=== PATIENT | female | born 1935 | race Caucasian/White ===

== ENCOUNTER 2019-11-28 16:06 | Emergency (ER) | payer MEDICARE ==
[~2019-11-28] VITALS: Ht 170.2 cm; Wt 45.0 kg
[~2019-11-28 16:06] MED LIST: CALC0.5C9 PO; CIPR500T87 PO; DOXY100T PO; HYDR200T72 PO; LEFL10TA PO; LEVO50TA PO; PRED2.5T PO; TRAM200T3 PO; VALS320T2 PO
--- NOTE | 2019-11-28 16:34 | NUR ---
PATIENT BROUGHT BACK FROM TRIAGE WITH CHIEF COMPLAINT OF NONHEALING WOUNDS ON LOWER LEGS AND DIARRHEA SINCE STARTING THE ABX. PATIENT HAS APPPOINTMENT WITH WOUND CARE THIS COMING SUNDAY 12/03. "WOUNDS ON LEGS, NOT HEALING" "WHEN SHE WAS DISCHARGED ON THE , SHE WAS DC'D WITH DOXYCYCLINE & CIPRO, THEY MADE HER SICK, SHE HAD DIARRHEA THAT JUST WENT RIGHT THROUGH HER. SHE HARDLY ATE"
--- NOTE | 2019-11-28 16:43 | NUR ---
PATIENT STATES SHE HASNT HAD LOOSE STOOL TODAY
[2019-11-28] MEDS ORDERED: SODIUM CHLORIDE 0.9% 1,000ML IVBOLUS ONE (17:00)
[2019-11-28] MEDS ORDERED: HYDROcodone/APAP 5/325 TABLET PO ONE (17:00)
[2019-11-28] MEDS ORDERED: SODIUM CHLORIDE FLUSH 10ML SYR IVF ONE (17:00)
--- NOTE | 2019-11-28 17:05 | NUR ---
[facility] AT BEDSIDE FOR EVALUATION
[2019-11-28] MEDS ORDERED: HYDROcodone/APAP 5/325 TABLET ONE (17:10)
[2019-11-28 17:18] LABS: MEAN CORPUSCULAR HEMOGLOBIN 28.9 pg (27.0-34.8); MEAN CORPUSCULAR HGB CONC 32.7 g/dL (32.4-35.8); MEAN CORPUSCULAR VOLUME 88.3 fL (80-100); MEAN PLATELET VOLUME 8.7 fL (7.4-10.4); PLATELET COUNT 344 x10^3/uL (130-400); RED CELL DISTRIBUTION WIDTH 15.8 % (9.6-15.2)
[2019-11-28 17:27] LABS: ALANINE AMINOTRANSFERASE 34 U/L (12-78); ALBUMIN 2.9 g/dL (3.4-5.0); ANION GAP 8 mmol/L (5-15); CALCIUM 9.2 mg/dL (8.5-10.1); CHLORIDE 106 mmol/L (98-107)
[2019-11-28 17:30] LABS: ALKALINE PHOSPHATASE 54 U/L (45-117); BILIRUBIN,TOTAL 0.3 mg/dL (0.2-1.0); CREATININE 1.59 mg/dL (0.55-1.02); TOTAL PROTEIN 6.1 g/dL (6.4-8.2)
[2019-11-28 17:53] LABS: BASOPHILS # (AUTO) 0.03 x10^3/uL (0-0.1); BASOPHILS % (AUTO) 0 % (0-1); EOSINOPHILS # (AUTO) 0.15 x10^3/uL (0-0.4); EOSINOPHILS % (AUTO) 2 % (1-7); LYMPHOCYTES # (AUTO) 2.36 x10^3/uL (1-3.4); LYMPHOCYTES % (AUTO) 31 % (22-44); MD SCAN; MONOCYTES # (AUTO) 0.73 x10^3/uL (0.2-0.8); MONOCYTES % (AUTO) 10 % (2-9); NEUTROPHILS % (AUTO) 57 % (42-75)
--- NOTE | 2019-11-28 18:03 | NUR ---
PT RESTING IN BED, CALL LIGHT IN REACH
--- NOTE | 2019-11-28 18:43 | NUR ---
[facility] AT BEDSIDE FOR UPDATE OF POC
--- NOTE | 2019-11-28 18:54 | NUR ---
REPORT RECEIVED FROM SOLANGE VELAZQUEZ. PT RESTING ON [place] WITH FAMILY AT BS. PT UPDATED ON POC. MONITORING IN PLACE, CALL LIGHT WITHIN REACH, ALL SAFETY MEASURES IN PLACE.
[2019-11-28 19:30] VITALS: BP 147/84
== END 2019-11-28 19:39 | disposition home or self-care (01) ==
LOC: ED 17:03
DX: N28.9 Disorder of kidney and ureter, unspecified (principal); R79.89 Other specified abnormal findings of blood chemistry; R19.7 Diarrhea, unspecified; E86.0 Dehydration; I10 Essential (primary) hypertension; Z88.0 Allergy status to penicillin; Z88.2 Allergy status to sulfonamides
CPT/HCPCS: 36415; 80053; 85025; 93005; 96360; 96361; 99284; J7030

== ENCOUNTER 2019-12-03 14:54 | Outpatient (CLI) | payer MEDICARE | END 2019-12-03 23:59 | disposition home or self-care (01) | LOC: WOUND 14:54 | PROVIDERS: ATTEND Family Medicine | DX: L97.112 Non-pressure chronic ulcer of right thigh with fat layer exposed (principal); S81.802A Unspecified open wound, left lower leg, initial encounter; I12.9 Hypertensive chronic kidney disease with stage 1 through stage 4 chronic kidney disease, or unspecified chronic kidney disease; N18.9 Chronic kidney disease, unspecified; M06.371 Rheumatoid nodule, right ankle and foot; M05.671 Rheumatoid arthritis of right ankle and foot with involvement of other organs and systems; M05.872 Other rheumatoid arthritis with rheumatoid factor of left ankle and foot; E03.9 Hypothyroidism, unspecified; Z87.891 Personal history of nicotine dependence; Z90.710 Acquired absence of both cervix and uterus; Z96.641 Presence of right artificial hip joint; X58.XXXA Exposure to other specified factors, initial encounter; Y93.89 Activity, other specified; Y92.89 Other specified places as the place of occurrence of the external cause; Y99.8 Other external cause status | CPT/HCPCS: 11042; 11045; G0463 ==

== ENCOUNTER 2019-12-10 14:01 | Outpatient (CLI) | payer MEDICARE | END 2019-12-10 23:59 | disposition home or self-care (01) | LOC: WOUND 14:01 | PROVIDERS: ATTEND Family Medicine | DX: S81.802D Unspecified open wound, left lower leg, subsequent encounter (principal); S81.801D Unspecified open wound, right lower leg, subsequent encounter; L97.102 Non-pressure chronic ulcer of unspecified thigh with fat layer exposed; L98.8 Other specified disorders of the skin and subcutaneous tissue; I12.9 Hypertensive chronic kidney disease with stage 1 through stage 4 chronic kidney disease, or unspecified chronic kidney disease; N18.9 Chronic kidney disease, unspecified; M06.371 Rheumatoid nodule, right ankle and foot; M05.671 Rheumatoid arthritis of right ankle and foot with involvement of other organs and systems; E03.9 Hypothyroidism, unspecified; Z79.899 Other long term (current) drug therapy; Z88.0 Allergy status to penicillin; Z88.2 Allergy status to sulfonamides; Z88.8 Allergy status to other drugs, medicaments and biological substances; Z96.641 Presence of right artificial hip joint; Z90.710 Acquired absence of both cervix and uterus; Z87.891 Personal history of nicotine dependence; Z86.14 Personal history of Methicillin resistant Staphylococcus aureus infection; X58.XXXD Exposure to other specified factors, subsequent encounter | CPT/HCPCS: 11042; 11045 ==

== ENCOUNTER → 2019-12-17 | Outpatient (CLI) | payer MEDICARE | END | disposition home or self-care (01) | LOC: WOUND 15:04 | PROVIDERS: ATTEND Family Medicine | DX: S81.802D Unspecified open wound, left lower leg, subsequent encounter (principal); S81.801D Unspecified open wound, right lower leg, subsequent encounter; L98.8 Other specified disorders of the skin and subcutaneous tissue; L97.102 Non-pressure chronic ulcer of unspecified thigh with fat layer exposed; I12.9 Hypertensive chronic kidney disease with stage 1 through stage 4 chronic kidney disease, or unspecified chronic kidney disease; N18.9 Chronic kidney disease, unspecified; D50.8 Other iron deficiency anemias; M06.371 Rheumatoid nodule, right ankle and foot; M05.671 Rheumatoid arthritis of right ankle and foot with involvement of other organs and systems; M05.872 Other rheumatoid arthritis with rheumatoid factor of left ankle and foot; E03.9 Hypothyroidism, unspecified; Z87.891 Personal history of nicotine dependence; Z86.14 Personal history of Methicillin resistant Staphylococcus aureus infection; Z96.641 Presence of right artificial hip joint; Z90.49 Acquired absence of other specified parts of digestive tract; X58.XXXD Exposure to other specified factors, subsequent encounter | CPT/HCPCS: 11042; 11045 ==

== ENCOUNTER 2019-12-24 14:22 | Outpatient (CLI) | payer MEDICARE | END 2019-12-24 23:59 | disposition home or self-care (01) | LOC: WOUND 14:22 | PROVIDERS: ATTEND Family Medicine | DX: S81.802D Unspecified open wound, left lower leg, subsequent encounter (principal); S81.801D Unspecified open wound, right lower leg, subsequent encounter; L97.102 Non-pressure chronic ulcer of unspecified thigh with fat layer exposed; I12.9 Hypertensive chronic kidney disease with stage 1 through stage 4 chronic kidney disease, or unspecified chronic kidney disease; N18.9 Chronic kidney disease, unspecified; I10 Essential (primary) hypertension; E03.9 Hypothyroidism, unspecified; D50.8 Other iron deficiency anemias; L98.8 Other specified disorders of the skin and subcutaneous tissue; M05.872 Other rheumatoid arthritis with rheumatoid factor of left ankle and foot; M06.371 Rheumatoid nodule, right ankle and foot; Z86.14 Personal history of Methicillin resistant Staphylococcus aureus infection; Z87.891 Personal history of nicotine dependence; Z96.641 Presence of right artificial hip joint; Z90.49 Acquired absence of other specified parts of digestive tract; Z90.710 Acquired absence of both cervix and uterus; Z88.8 Allergy status to other drugs, medicaments and biological substances; Z88.0 Allergy status to penicillin; Z88.2 Allergy status to sulfonamides; Z79.899 Other long term (current) drug therapy; W54.0XXD Bitten by dog, subsequent encounter; X58.XXXD Exposure to other specified factors, subsequent encounter | CPT/HCPCS: 11042; 11043 ==

== ENCOUNTER 2019-12-24 15:10 | Outpatient (CLI) | payer MEDICARE | END 2019-12-24 23:59 | disposition home or self-care (01) | LOC: CFH 15:10 | PROVIDERS: ATTEND Family Medicine | DX: Z02.9 Encounter for administrative examinations, unspecified (principal) ==

== ENCOUNTER → 2019-12-28 | Outpatient (CLI) | payer MEDICARE | END | disposition home or self-care (01) | LOC: CFH 13:00 | PROVIDERS: ATTEND Family Medicine | DX: L97.102 Non-pressure chronic ulcer of unspecified thigh with fat layer exposed (principal); M05.671 Rheumatoid arthritis of right ankle and foot with involvement of other organs and systems ==

== ENCOUNTER → 2019-12-31 | Outpatient (CLI) | payer MEDICARE | END | disposition home or self-care (01) | LOC: WOUND 14:12 | PROVIDERS: ATTEND Family Medicine | DX: S81.802D Unspecified open wound, left lower leg, subsequent encounter (principal); S81.801D Unspecified open wound, right lower leg, subsequent encounter; L98.8 Other specified disorders of the skin and subcutaneous tissue; L97.102 Non-pressure chronic ulcer of unspecified thigh with fat layer exposed; I12.9 Hypertensive chronic kidney disease with stage 1 through stage 4 chronic kidney disease, or unspecified chronic kidney disease; N18.9 Chronic kidney disease, unspecified; D50.8 Other iron deficiency anemias; M06.371 Rheumatoid nodule, right ankle and foot; M05.671 Rheumatoid arthritis of right ankle and foot with involvement of other organs and systems; M05.872 Other rheumatoid arthritis with rheumatoid factor of left ankle and foot; E03.9 Hypothyroidism, unspecified; Z87.891 Personal history of nicotine dependence; Z86.14 Personal history of Methicillin resistant Staphylococcus aureus infection; Z96.641 Presence of right artificial hip joint; Z90.49 Acquired absence of other specified parts of digestive tract; X58.XXXD Exposure to other specified factors, subsequent encounter | CPT/HCPCS: 11042; 11045 ==

== ENCOUNTER 2020-01-04 09:27 | Outpatient (CLI) | payer MEDICARE | END 2020-01-04 23:59 | disposition home or self-care (01) | LOC: WOUND 09:27 | PROVIDERS: ATTEND Family Medicine | DX: L97.222 Non-pressure chronic ulcer of left calf with fat layer exposed (principal); L97.212 Non-pressure chronic ulcer of right calf with fat layer exposed; I12.9 Hypertensive chronic kidney disease with stage 1 through stage 4 chronic kidney disease, or unspecified chronic kidney disease; N18.9 Chronic kidney disease, unspecified; M06.371 Rheumatoid nodule, right ankle and foot; M05.872 Other rheumatoid arthritis with rheumatoid factor of left ankle and foot; M05.671 Rheumatoid arthritis of right ankle and foot with involvement of other organs and systems; E03.9 Hypothyroidism, unspecified; L98.8 Other specified disorders of the skin and subcutaneous tissue; D50.9 Iron deficiency anemia, unspecified; Z90.49 Acquired absence of other specified parts of digestive tract; Z86.14 Personal history of Methicillin resistant Staphylococcus aureus infection; Z87.891 Personal history of nicotine dependence; Z96.641 Presence of right artificial hip joint; Z90.710 Acquired absence of both cervix and uterus; Z88.8 Allergy status to other drugs, medicaments and biological substances; Z88.0 Allergy status to penicillin; Z88.2 Allergy status to sulfonamides; Z79.899 Other long term (current) drug therapy | CPT/HCPCS: 97597; 97598 ==

== ENCOUNTER → 2020-01-11 | Outpatient (CLI) | payer MEDICARE | END | disposition home or self-care (01) | LOC: WOUND 14:06 | PROVIDERS: ATTEND Nurse Practitioner Family | DX: L97.222 Non-pressure chronic ulcer of left calf with fat layer exposed (principal); L97.212 Non-pressure chronic ulcer of right calf with fat layer exposed; I12.9 Hypertensive chronic kidney disease with stage 1 through stage 4 chronic kidney disease, or unspecified chronic kidney disease; N18.9 Chronic kidney disease, unspecified; M06.371 Rheumatoid nodule, right ankle and foot; M05.872 Other rheumatoid arthritis with rheumatoid factor of left ankle and foot; M05.671 Rheumatoid arthritis of right ankle and foot with involvement of other organs and systems; E03.9 Hypothyroidism, unspecified; L98.8 Other specified disorders of the skin and subcutaneous tissue; D50.9 Iron deficiency anemia, unspecified; Z90.49 Acquired absence of other specified parts of digestive tract; Z86.14 Personal history of Methicillin resistant Staphylococcus aureus infection; Z87.891 Personal history of nicotine dependence; Z96.641 Presence of right artificial hip joint; Z90.710 Acquired absence of both cervix and uterus; Z88.8 Allergy status to other drugs, medicaments and biological substances; Z88.0 Allergy status to penicillin; Z88.2 Allergy status to sulfonamides; Z79.899 Other long term (current) drug therapy | CPT/HCPCS: 97597; 97598 ==

== ENCOUNTER → 2020-01-18 | Outpatient (CLI) | payer MEDICARE | END | disposition home or self-care (01) | LOC: WOUND 13:40 | PROVIDERS: ATTEND Nurse Practitioner Family | DX: L97.222 Non-pressure chronic ulcer of left calf with fat layer exposed (principal); L97.212 Non-pressure chronic ulcer of right calf with fat layer exposed; I12.9 Hypertensive chronic kidney disease with stage 1 through stage 4 chronic kidney disease, or unspecified chronic kidney disease; N18.9 Chronic kidney disease, unspecified; M06.371 Rheumatoid nodule, right ankle and foot; M05.872 Other rheumatoid arthritis with rheumatoid factor of left ankle and foot; M05.671 Rheumatoid arthritis of right ankle and foot with involvement of other organs and systems; E03.9 Hypothyroidism, unspecified; D50.8 Other iron deficiency anemias; L98.8 Other specified disorders of the skin and subcutaneous tissue; Z90.49 Acquired absence of other specified parts of digestive tract; Z86.14 Personal history of Methicillin resistant Staphylococcus aureus infection; Z87.891 Personal history of nicotine dependence; Z96.641 Presence of right artificial hip joint; Z90.710 Acquired absence of both cervix and uterus; Z88.8 Allergy status to other drugs, medicaments and biological substances; Z88.0 Allergy status to penicillin; Z88.2 Allergy status to sulfonamides; Z79.899 Other long term (current) drug therapy | CPT/HCPCS: 97597; 97598 ==

== ENCOUNTER → 2020-01-21 | Outpatient (CLI) | payer MEDICARE | END | disposition home or self-care (01) | LOC: CVU 14:42 | PROVIDERS: ATTEND Nurse Practitioner Family | DX: L97.212 Non-pressure chronic ulcer of right calf with fat layer exposed (principal); L97.222 Non-pressure chronic ulcer of left calf with fat layer exposed; E03.9 Hypothyroidism, unspecified; N18.9 Chronic kidney disease, unspecified; M06.9 Rheumatoid arthritis, unspecified | CPT/HCPCS: 93970 ==

== ENCOUNTER 2020-01-28 14:02 | Outpatient (CLI) | payer MEDICARE | END 2020-01-28 23:59 | disposition home or self-care (01) | LOC: WOUND 14:02 | PROVIDERS: ATTEND Family Medicine | DX: L97.222 Non-pressure chronic ulcer of left calf with fat layer exposed (principal); L97.212 Non-pressure chronic ulcer of right calf with fat layer exposed; I12.9 Hypertensive chronic kidney disease with stage 1 through stage 4 chronic kidney disease, or unspecified chronic kidney disease; N18.9 Chronic kidney disease, unspecified; M06.371 Rheumatoid nodule, right ankle and foot; M05.872 Other rheumatoid arthritis with rheumatoid factor of left ankle and foot; M05.671 Rheumatoid arthritis of right ankle and foot with involvement of other organs and systems; E03.9 Hypothyroidism, unspecified; D50.8 Other iron deficiency anemias; L98.8 Other specified disorders of the skin and subcutaneous tissue; Z90.49 Acquired absence of other specified parts of digestive tract; Z86.14 Personal history of Methicillin resistant Staphylococcus aureus infection; Z87.891 Personal history of nicotine dependence; Z96.641 Presence of right artificial hip joint; Z90.710 Acquired absence of both cervix and uterus; Z88.8 Allergy status to other drugs, medicaments and biological substances; Z88.0 Allergy status to penicillin; Z88.2 Allergy status to sulfonamides; Z79.899 Other long term (current) drug therapy | CPT/HCPCS: 11042; 11045 ==

== ENCOUNTER → 2020-02-25 | Outpatient (CLI) | payer MEDICARE | END | disposition home or self-care (01) | LOC: WOUND 14:34 | PROVIDERS: ATTEND Family Medicine | DX: L97.222 Non-pressure chronic ulcer of left calf with fat layer exposed (principal); L97.212 Non-pressure chronic ulcer of right calf with fat layer exposed; M05.872 Other rheumatoid arthritis with rheumatoid factor of left ankle and foot; M05.671 Rheumatoid arthritis of right ankle and foot with involvement of other organs and systems; M06.371 Rheumatoid nodule, right ankle and foot; I12.9 Hypertensive chronic kidney disease with stage 1 through stage 4 chronic kidney disease, or unspecified chronic kidney disease; N18.9 Chronic kidney disease, unspecified; D50.8 Other iron deficiency anemias; E03.9 Hypothyroidism, unspecified; L98.8 Other specified disorders of the skin and subcutaneous tissue; Z90.49 Acquired absence of other specified parts of digestive tract; Z90.710 Acquired absence of both cervix and uterus; Z88.8 Allergy status to other drugs, medicaments and biological substances; Z88.0 Allergy status to penicillin; Z88.2 Allergy status to sulfonamides; Z79.899 Other long term (current) drug therapy; Z96.641 Presence of right artificial hip joint; Z87.891 Personal history of nicotine dependence | CPT/HCPCS: 11042; 97597 ==

== ENCOUNTER 2020-03-17 13:12 | Outpatient (CLI) | payer MEDICARE | END 2020-03-17 23:59 | disposition home or self-care (01) | LOC: WOUND 13:12 | PROVIDERS: ATTEND Family Medicine | DX: L97.222 Non-pressure chronic ulcer of left calf with fat layer exposed (principal); L97.212 Non-pressure chronic ulcer of right calf with fat layer exposed; I12.9 Hypertensive chronic kidney disease with stage 1 through stage 4 chronic kidney disease, or unspecified chronic kidney disease; N18.9 Chronic kidney disease, unspecified; D50.8 Other iron deficiency anemias; M06.371 Rheumatoid nodule, right ankle and foot; M05.671 Rheumatoid arthritis of right ankle and foot with involvement of other organs and systems; M05.872 Other rheumatoid arthritis with rheumatoid factor of left ankle and foot; E03.9 Hypothyroidism, unspecified; Z87.891 Personal history of nicotine dependence | CPT/HCPCS: 97597 ==

== ENCOUNTER → 2020-04-04 | Outpatient (CLI) | payer MEDICARE | END | disposition home or self-care (01) | LOC: WOUND 14:40 | PROVIDERS: ATTEND Nurse Practitioner Family | DX: L97.222 Non-pressure chronic ulcer of left calf with fat layer exposed (principal); L97.212 Non-pressure chronic ulcer of right calf with fat layer exposed; I12.9 Hypertensive chronic kidney disease with stage 1 through stage 4 chronic kidney disease, or unspecified chronic kidney disease; N18.9 Chronic kidney disease, unspecified; D50.8 Other iron deficiency anemias; M06.371 Rheumatoid nodule, right ankle and foot; M05.671 Rheumatoid arthritis of right ankle and foot with involvement of other organs and systems; M05.872 Other rheumatoid arthritis with rheumatoid factor of left ankle and foot; E03.9 Hypothyroidism, unspecified; Z87.891 Personal history of nicotine dependence; Z90.710 Acquired absence of both cervix and uterus; Z90.49 Acquired absence of other specified parts of digestive tract; Z79.899 Other long term (current) drug therapy; Z88.0 Allergy status to penicillin; Z88.2 Allergy status to sulfonamides; Z88.8 Allergy status to other drugs, medicaments and biological substances | CPT/HCPCS: 97597; 97598 ==

== ENCOUNTER → 2020-04-14 | Outpatient (CLI) | payer MEDICARE | END | disposition home or self-care (01) | LOC: WOUND 13:30 | PROVIDERS: ATTEND Family Medicine | DX: L97.222 Non-pressure chronic ulcer of left calf with fat layer exposed (principal); L97.212 Non-pressure chronic ulcer of right calf with fat layer exposed; I12.9 Hypertensive chronic kidney disease with stage 1 through stage 4 chronic kidney disease, or unspecified chronic kidney disease; N18.9 Chronic kidney disease, unspecified; D50.8 Other iron deficiency anemias; M06.371 Rheumatoid nodule, right ankle and foot; M05.671 Rheumatoid arthritis of right ankle and foot with involvement of other organs and systems; M05.872 Other rheumatoid arthritis with rheumatoid factor of left ankle and foot; E03.9 Hypothyroidism, unspecified; Z87.891 Personal history of nicotine dependence; Z90.710 Acquired absence of both cervix and uterus; Z90.49 Acquired absence of other specified parts of digestive tract; Z79.899 Other long term (current) drug therapy; Z88.0 Allergy status to penicillin; Z88.2 Allergy status to sulfonamides; Z88.8 Allergy status to other drugs, medicaments and biological substances; Z96.641 Presence of right artificial hip joint | CPT/HCPCS: 97597; 97598 ==